=== PATIENT | female | born 1955 | race Caucasian/White ===

== ENCOUNTER 2019-01-09 22:17 | Emergency (ER) | payer OTHER ==
[2019-01-09 22:45] VITALS: BP 118/56; PULSE 55; TEMP 98.1; BMI 26.1
[2019-01-10] MEDS ORDERED: ACETAMINOPHEN 325 MG TABLET (FP) PO ONE (00:51)
--- NOTE | 2019-01-10 01:03 | PDOC ---
Attending Attestation - Resident Resident Name: AkosuaJesus - ED Attending Attestation I have performed the following: I have examined & evaluated the patient, The case was reviewed & discussed with the resident, I agree w/resident's findings & plan, Exceptions are as noted - HPI HPI: 01/10/19 00:59 63 yo F with no pmhx here s/p trip and fall. pt was with grocery car and granddaughter, and the granddaughter fell out. and the grandma subsequently fell on her left side also. c/o R ankle pain and left rib pain. hurts worse with walking and breathing. pt ambulting . no hip or knee pain. no loc no head trauma. no n/v did not take anything for pain. happened day prior. - Physicial Exam PE: 01/10/19 01:01 awake alert head atraumatic. no cervical spine tenderness. lungs clear bilaterally left lower chest wall tenderness. no step off no crepitus. heart rrr no mrg abd nt. no midline spinal tendernss t/l s spine. right ankle mild anterior louis ttp. bilat mall nontender, 2 + dp/ pt pulses. no eccymosis. nuero alert oriented x 3. moves all four ext. speech clear. - Medical Decision Making 01/10/19 01:03 differential fx, vs. contusion. plan cxr with ribs left, R ankle xray. pain control. 01/10/19 02:30 CXR negative for obvious fracture. will treat for clinical fracture regardless with pain control and incentive spirometry.
--- NOTE | 2019-01-10 01:54 | PDOC ---
History of Present Illness - General Chief Complaint: Injury Stated Complaint: FALL Time Seen by Provider: 01/10/19 00:36 History Source: Patient Exam Limitations: No Limitations - History of Present Illness Initial Comments: 01/10/19 01:36 63 yo female, sig pmh presents to the ED after trip and fall yesterday. Pt states she was pushing a shopping cart with her granddaughter inside, hit uneven pavement leading to her granddaughter falling out and pt accidentally tripping over cart. Pt landed on left side of her body with new complaints of left flank/rib pain and right distal tibia pain. Pt denies hitting head, LOC, changes in vision, RUEDA, N/V/F/C, weakness/numbness on 1 side of her body, neck pain or pain/bruising to any other area of her body. Left rib pain is mad worse with deep breathing and pt has had difficulty ambulating due to pain in the distal tibia. Denies CP, abdominal pain, back pain, changes in bowel or bladder habits Past History - Past Medical History Allergies/Adverse Reactions: Allergies Allergy/AdvReac Type Severity Reaction Status Date / Time No Known Allergies Allergy Verified 07/15/13 23:02 Home Medications: Ambulatory Orders No Home Medications 0 dose .ROUTE UTDICT 07/16/13 Cancer: Yes (breast) COPD: No Thyroid Disease: Yes - Suicide/Smoking/Psychosocial Hx Smoking Status: No Smoking History: Never smoked Number of Cigarettes Smoked Daily: 0 Review of Systems - Review of Systems Constitutional: No: Chills, Fever HEENTM: No: Blurred Vision, Double Vision Respiratory: Yes: Other (Pain with deep breathing) Cardiac (ROS): No: Chest Pain, Edema, Irregular Heart Rate, Palpitations, Syncope ABD/GI: Yes: Other (denies abdominal pain). No: Constipated, Diarrhea, Nausea, Vomiting : No: Burning, Dysuria, Discharge, Frequency Musculoskeletal: No: Back Pain, Neck Pain Integumentary: No: Change in Color Neurological: No: Headache, Numbness, Paresthesia, Weakness *Physical Exam - Vital Signs Last Vital Signs Temp Pulse Resp BP Pulse Ox 98.1 F 55 L 20 118/56 L 100 01/09/19 22:41 01/09/19 22:41 01/09/19 22:41 01/09/19 22:41 01/09/19 22:41 - Physical Exam General Appearance: Yes: Nourished, Appropriately Dressed. No: Apparent Distress HEENT: positive: EOMI, RADHA, Normal ENT Inspection Neck: positive: Supple. negative: Carotid bruit Respiratory/Chest: positive: Lungs Clear, Normal Breath Sounds. negative: Accessory Muscle Use, Rapid RR, Crackles, Rales, Rhonchi, Stridor, Wheezing Cardiovascular: positive: Regular Rhythm, Regular Rate, S1, S2. negative: Edema , JVD, Murmur Vascular Pulses: Dorsalis-Pedis (R): 4+, Doralis-Pedis (L): 4+ Gastrointestinal/Abdominal: positive: Flat, Soft. negative: Pulsatile Mass, Distended, Guarding, Rebound, Tenderness Musculoskeletal: positive: Normal Inspection. negative: CVA Tenderness Extremity: positive: Normal Capillary Refill, Normal Range of Motion, Pelvis Stable, Other (right distal tibial swelling with pain on palpation. Pt able to ambulate but with difficulty due to pain) Integumentary: positive: Normal Color, Dry, Warm Neurologic: positive: adult live in caregiver II-XII NML intact, Fully Oriented, Alert, Normal Mood/ Affect, Normal Response, Motor Strength 5/5. negative: Facial Droop, Numbness, Sensory Deficit, Confused, Disoriented ED Treatment Course - RADIOLOGY Radiology Studies Ordered: Category Date Time Status ANKLE & FOOT-RIGHT* [RAD] Stat Radiology 01/10/19 01:00 Ordered CHEST PA & LAT [RAD] Stat Radiology 01/10/19 00:52 Ordered LEG TIB/FIB-RIGHT [RAD] Stat Radiology 01/10/19 01:00 Ordered RIBS-LEFT SIDE [RAD] Stat Radiology 01/10/19 00:52 Ordered Medical Decision Making - Medical Decision Making 63 yo female, sig pmh presents to the ED after trip and fall yesterday. Pt states she was pushing a shopping cart with her granddaughter inside, hit uneven pavement leading to her granddaughter falling out and pt accidentally tripping over cart. Pt landed on left side of her body with new complaints of left flank/rib pain and right distal tibia pain. Pt denies hitting head, LOC, changes in vision, RUEDA, N/V/F/C, weakness/numbness on 1 side of her body, neck pain or pain/bruising to any other area of her body. Left rib pain is mad worse with deep breathing and pt has had difficulty ambulating due to pain in the distal tibia. Denies CP, abdominal pain, back pain, changes in bowel or bladder habits vitals WNL AOX3 NAD, ambulating with mild difficulty favoring right ankle DDX INLT: rib fracture, pneumo, pleural effusion, ankle fracture vs sprain vs contusion to tibia CXR, Rib series and ankle x ray negative for fractures or acute path Pt given tylenol for pain relief and showed how to use an incentive spirotmeter Pt safe for DC with PCP f/u, pain control and incentive spirometer to facilitate and insure deep breathing/infection/atelectasis reduction, strict return precautions Pt understands and agrees with plan *DC/Admit/Observation/Transfer Diagnosis at time of Disposition: Rib pain on left side - Discharge Dispostion Disposition: HOME Condition at time of disposition: Stable Decision to Admit order: No - Referrals Referrals: [facility] [place] [Provider Group] - Patient Instructions Printed Discharge Instructions: How to Use an Incentive Spirometer, DI for Rib Fracture, How to Prevent Falls Additional Instructions: Please see the Primary Care Doctors referred to you within the next 48 hours. Take Motrin and Tylenol as needed for pain every 4-6 hours over the counter. There was a no overt rib fracture seen on x ray today however, if pain continues , a CT scan may be needed. Use the incentive spirometer 10-15 times every hour until left rib pain has resolved. No fracture was seen on your x ray of the lower leg and ankle, use ice, compress, elevate and rest the leg to help it heal. Return to the ER for new or concerning symptoms including but not limited to: excessive chest/rib pain not improved with pain medication, difficulty breathing, high fevers, coughing up sputum/blood or difficulty walking. Thank you - Post Discharge Activity
[2019-01-10] MEDS ORDERED: ACETAMINOPHEN 325 MG TABLET (FP) ONE (02:24)
== END 2019-01-10 02:59 | disposition home or self-care (01) ==
LOC: JER 22:17
DX: S29.8XXA Other specified injuries of thorax, initial encounter (principal); W01.198A Fall on same level from slipping, tripping and stumbling with subsequent striking against other object, initial encounter; Y93.89 Activity, other specified; Y92.512 Supermarket, store or market as the place of occurrence of the external cause; Y99.8 Other external cause status; Z85.3 Personal history of malignant neoplasm of breast
CPT/HCPCS: 71045-TC-FY; 71101-TC-LT-FY; 73610-TC-RT-FY; 99281-25